=== PATIENT | female | born 1950 | race Caucasian/White ===

== ENCOUNTER 2020-11-01 06:45 | Day surgery (SDC) | payer OTHER ==
[2020-11-01] MEDS: PHENYLEPHRINE 2.5% OPTH 2 ML ONE ×3 (07:13→07:45)
[2020-11-01] MEDS: CYCLOPENTOLATE 2% OPTH 2 ML ONE ×3 (07:13→07:45)
[2020-11-01] MEDS: MOXIFLOXACIN HCL 0.5% 3ML OPTH OPTH ONE ×3 (07:13→07:45)
[2020-11-01] MEDS: TROPICAMIDE 1% OPTH 3 ML BOT ONE ×3 (07:13→07:45)
[2020-11-01] MEDS: KETOROLAC OPTHALMIC 5 ML BOT ONE ×3 (07:13→07:45)
[2020-11-01] MEDS ORDERED: Ringers Lactate 1,000 ML IV ONE (07:14)
[2020-11-01] MEDS ORDERED: propofoL 200 MG/20 ML VIAL IV ONE (07:32)
[2020-11-01] MEDS ORDERED: FENTANYL CITR 100 MCG/2 ML ONE (07:32)
[2020-11-01] MEDS ORDERED: ONDANSETRON 4 MG/2 ML VIAL ONE (07:32)
[2020-11-01] MEDS ORDERED: BSS OPTHALMIC SOL 15 ML BOT OPTH ONE (07:32)
[2020-11-01] MEDS ORDERED: LIDOCAINE 2% MPF 5 ML VIAL ONE (07:32)
[2020-11-01] MEDS ORDERED: TOBRADEX 0.3-0.1% OPTH OINTMENT ONE (07:33)
[2020-11-01] MEDS ORDERED: BALANCED SALT IRRIG PLAIN 500 ML BTL IRR ONE (07:33)
[2020-11-01] MEDS ORDERED: EPINEPHRINE/PF 1 MG/ML AMP ONE (07:33)
[2020-11-01] MEDS ORDERED: POVIDONE-IODINE 5% EYE DROPS ONE (07:33)
[2020-11-01] MEDS ORDERED: dexAMETHasone 4 MG/ML VIAL ONE (07:33)
[2020-11-01] MEDS ORDERED: DUOVISC 1 KIT OPTH ONE (07:34)
[2020-11-01 10:16] VITALS: BP 159/81; TEMP 96.3; O2SAT 96
--- NOTE | 2020-11-01 12:19 | OP ---
Date of Procedure: 11/01/2020 Surgeon: Jameson Calderón MD Pm Technician: None. Procedure Performed: Cataract extraction of left eye with placement of toric intraocular lens, left eye. Preoperative Diagnosis: Visually significant cataract, left eye. Postoperative Diagnosis: Visually significant cataract, left eye. Description Of Procedure: After being properly identified in the preoperative holding area including marking the 180 degree and 90 degree axis with the patient upright. The patient was taken back to [facility] operating room where a time-out was performed. The patient was then placed under general anesthes ia and prepped and draped in normal sterile fashion. An axis marker was used to quynh the planned IOL alignment at 076 degrees using the preoperative planned howe for orientation. Thereafter, the lid s peculum was adjusted and paracentesis incision was made at 90 degrees both superiorly and inferiorly. The anterior chamber was filled with viscoelastic and the main phaco incision wound was made tempor ally using a 2.4 mm blade. A continuous curvilinear capsulorrhexis was created with a cystotome and completed with an Utrata forceps. Hydrodissection and hydrodelineation were carried out using a Box g cannula resulting in free rotation of the lens nucleus. The lens was thereafter removed in a stand landry divide and conquer technique. Once all 4 quadrants had been removed, the phaco handpiece was exc hanged for bimanual irrigation aspiration handpieces and all cortical remnants were removed and the c apsule polished. The capsular bag was filled with additional viscoelastic and an Arden model SN6AT6 power 21.5 diopter, serial #[id number], was inserted into the capsular bag and dialed into position at 076 degrees, having previously been marked with the Haider marker. The viscoelastic was then christy jessica using an irrigation aspiration handpiece and once all viscoelastic had been removed and the IOL a gain confirmed to be at the proper alignment, the wound hydrated and tested for water tightness and [facility] procedure concluded. The lid speculum and drapes were removed and the patient was patched over To braDex ointment and taken to the postoperative holding area in stable condition having tolerated proc edure well. There were no complications. Estimated Blood Loss: None. Specimens: No specimens were sent. Drains: No drains were placed. Plan: The patient is to follow up with myself, Dr. Jameson Calderón at the [facility] [place] RAULG/MODL Voice ID: [id number] Report ID: [id number]
== END 2020-11-01 10:06 | disposition home health service (06) ==
LOC: OR 06:45
PROVIDERS: ATTEND Ophthalmology
PROC: 08RK3JZ Replacement of Left Lens with Synthetic Substitute, Percutaneous Approach (ICD-10-PCS; principal; 2020-11-01 07:30)
DX: H26.9 Unspecified cataract (principal); H52.202 Unspecified astigmatism, left eye; Z20.822 Contact with and (suspected) exposure to COVID-19
CPT/HCPCS: 66984; U0002; J2704; J1100; J0171; J3010; J7120; J2405; 93005

== ENCOUNTER 2020-11-27 06:18 | Day surgery (SDC) | payer OTHER ==
[2020-11-27] MEDS ORDERED: KETOROLAC OPTHALMIC 5 ML BOT ONE (06:50)
[2020-11-27] MEDS ORDERED: Phenylephrine HCl 10 MG/ML 1 ML VIAL ONE (06:50)
[2020-11-27] MEDS ORDERED: MOXIFLOXACIN HCL 0.5% 3ML OPTH OPTH ONE ×3 (06:51→07:25)
[2020-11-27] MEDS ORDERED: Ringers Lactate 1,000 ML IV ONE (06:51)
[2020-11-27] MEDS ORDERED: PHENYLEPHRINE 2.5% OPTH 2 ML ONE (06:52)
[2020-11-27] MEDS: CYCLOPENTOLATE 2% OPTH 2 ML ONE ×3 (06:55→07:25)
[2020-11-27] MEDS: TROPICAMIDE 1% OPTH 3 ML BOT ONE ×3 (06:55→07:16)
[2020-11-27] MEDS ORDERED: PHENYLEPHRINE 2.5% OPTH 2 ML OPTH ONE ×2 (07:10→07:25)
[2020-11-27] MEDS ORDERED: KETOROLAC OPTHALMIC 5 ML BOT OPTH ONE ×2 (07:10→07:25)
[2020-11-27] MEDS ORDERED: TROPICAMIDE 1% OPTH 3 ML BOT OPTH ONE (07:25)
[2020-11-27] MEDS ORDERED: BALANCED SALT IRRIG PLAIN 500 ML BTL IRR ONE (07:27)
[2020-11-27] MEDS ORDERED: EPINEPHRINE/PF 1 MG/ML AMP ONE (07:27)
[2020-11-27] MEDS ORDERED: TOBRADEX 0.3-0.1% OPTH OINTMENT ONE (07:28)
[2020-11-27] MEDS ORDERED: DUOVISC 1 KIT OPTH ONE (07:28)
[2020-11-27] MEDS ORDERED: POVIDONE-IODINE 5% EYE DROPS ONE (07:30)
[2020-11-27] MEDS ORDERED: propofoL 200 MG/20 ML VIAL IV ONE (07:32)
[2020-11-27] MEDS ORDERED: FENTANYL CITR 100 MCG/2 ML ONE (07:33)
[2020-11-27] MEDS ORDERED: MIDAZOLAM HCL 2 MG/2 ML INJ ONE (07:33)
[2020-11-27] MEDS ORDERED: LIDOCAINE 2% MPF 5 ML VIAL ONE (07:34)
[2020-11-27] MEDS ORDERED: EPHEDRINE SULF 50 MG/ML VIAL ONE (07:36)
[2020-11-27] MEDS ORDERED: ONDANSETRON 4 MG/2 ML VIAL ONE ×2 (07:36→07:43)
[2020-11-27] MEDS ORDERED: SCOPOLAMINE HYDROBROMIDE PATCH TD ONE (08:03)
[2020-11-27] MEDS ORDERED: ROCURONIUM 50 MG/5 ML VIAL IV ONE (08:25)
[2020-11-27] MEDS ORDERED: GLYCOPYRROLATE 0.2 MG/ML SYR ONE (08:25)
[2020-11-27] MEDS ORDERED: NEOSTIGMINE 1 MG/ML -5 ML ONE (08:44)
[2020-11-27 10:43] VITALS: BP 137/73; TEMP 97.3; O2SAT 93
--- NOTE | 2020-11-27 11:19 | OP ---
Date of Procedure: 11/27/2020 Surgeon: Jameson Calderón MD Senior Mechanical Engineer: None. Preoperative Diagnosis: Visually significant cataract, right eye. Postoperative Diagnosis: Visually significant cataract, right eye. Procedure Performed: Cataract extraction of right eye with placement of toric intraocular lens. Description Of Procedure: After being properly identified in the preoperative holding area, the patient was taken back to the operating room where a time-out was performed. The patient was then prepped and draped in normal sterile fashion. Examination of the eye underneath the operating microscope revealed the preoperative axis alignment howe that I had made in the preoperative holding area and a well dilated pupil. Using a Haider marker and a Sinskey hook marked with ink, the calculated axis of 92 degrees was marked on the patient's cornea and then the main paracentesis wound made nasally in the anterior chamber filled with Viscoat. An additional paracentesis was made temporally and then the main phaco incision wound made using a 2.4 mm keratome in a triplanar fashion. A continuous curvilinear capsulorrhexis was created using a cystotome and completed with an Utrata forceps. Hydrodissection and hydrodelineation were carried out using a Trivedi cannula until free rotation of the lens had. The cataract was thereafter removed in a standard divide and conquer technique and once all 4 quadrants had been removed, the phaco handpiece exchanged for bimanual irrigation aspiration handpieces and all cortical material removed and the capsular bag was polished. The capsular bag was then filled with cohesive viscoelastic (from the Duovisc pack) and an Arden model SN6AT6, power 19.0 diopter, serial #[id number] was implanted into the capsular bag and rotated into position at 0-92 degrees. The viscoelastic was then removed using the irrigation aspiration handpieces. Of note during the procedure, the superior iris did prolapse through the main phaco incision wound. This was easily reposited. Because of this, decision was made to place a single 10-0 nylon suture through the main phaco incision. This was performed once all viscoelastic had been removed and the intraocular lens again confirmed to be in the proper axis. The paracentesis ports were hydrated. The wound palpated to ensure water tightness and correct pressure. Thereafter, the procedure concluded. The lid speculum and drapes were removed and the patient was patched over TobraDex ointment and taken to the postoperative holding area in stable condition having tolerated procedure well. There were no complications. Estimated blood loss less than 1 mL. There were no specimens or drains placed. The patient is to follow up with myself, Dr. Jameson Calderón at the [facility] tomorrow morning. DICTATED BUT NOT REVIEWED JPG/MODL Voice ID: [id number] Report ID: [id number] [facility]
== END 2020-11-27 10:15 | disposition home health service (06) ==
LOC: OR 06:18
PROVIDERS: ATTEND Ophthalmology
PROC: 08RJ3JZ Replacement of Right Lens with Synthetic Substitute, Percutaneous Approach (ICD-10-PCS; principal; 2020-11-27 07:30)
DX: H26.9 Unspecified cataract (principal); Z20.822 Contact with and (suspected) exposure to COVID-19
CPT/HCPCS: 66984; U0003; J2704; J0171; J2250; J3010; J2710; J7120; J2405 ×2; J2370